=== PATIENT | female | born 1945 | race Caucasian/White ===

== ENCOUNTER 2016-05-28 08:50 | Outpatient (CLI) | payer MEDICARE, OTHER | END 2016-05-28 08:51 | disposition home or self-care (01) | DX: M25.50 Pain in unspecified joint (principal) ==

== ENCOUNTER 2016-07-20 17:13 | Outpatient (CLI) | payer MEDICARE, OTHER | END 2016-07-20 17:14 | disposition home or self-care (01) | DX: I10 Essential (primary) hypertension (principal); E78.5 Hyperlipidemia, unspecified ==

== ENCOUNTER 2016-08-31 08:03 | Day surgery (SDC) | payer MEDICARE, OTHER ==
[2016-08-31] MEDS ORDERED: LACTATED RINGERS 1,000 ML IV ONE (08:26)
[2016-08-31] MEDS ORDERED: LIDO GARGLE 30 ML BOTTLE PO ONE (09:45)
[2016-08-31] MEDS ORDERED: BENZOCAINE/TETRACAINE/BUTAMBEN SPRAY 56 GM TOP ONE (09:45)
[2016-08-31] MEDS ORDERED: MIDAZOLAM 2 MG/2 ML VIAL IVP ONE (10:05)
[2016-08-31] MEDS ORDERED: fentaNYL 100 MCG/2 ML VIAL IVP ONE (10:05)
[2016-08-31 10:26] VITALS: BP 150/72
== END 2016-08-31 08:04 | disposition home or self-care (01) ==
LOC: SDS 08:03
PROVIDERS: ATTEND Surgery
PROC: 0DB68ZX Excision of Stomach, Via Natural or Artificial Opening Endoscopic, Diagnostic (ICD-10-PCS; 2016-08-31)
PROC: 0DB58ZX Excision of Esophagus, Via Natural or Artificial Opening Endoscopic, Diagnostic (ICD-10-PCS; principal; 2016-08-31 09:15)
DX: K21.9 Gastro-esophageal reflux disease without esophagitis (principal); K43.2 Incisional hernia without obstruction or gangrene; K20.9 Esophagitis, unspecified; K29.70 Gastritis, unspecified, without bleeding; K44.9 Diaphragmatic hernia without obstruction or gangrene; K31.89 Other diseases of stomach and duodenum
CPT/HCPCS: 43239; 87081; A9270; J7120; 88305

== ENCOUNTER 2016-11-02 09:39 | Outpatient (CLI) | payer MEDICARE, OTHER ==
--- NOTE | 2016-11-03 18:10 | Mammography Report ---
DIGITAL BILATERAL SCREENING MAMMOGRAM: 11/02/2016 HISTORY: A 70-year-old asymptomatic female. Bilateral breast implants. COMPARISON: 08/2015, 08/2014, 08/2013, 06/2012, 11/2010, 11/2009, 08/2008. TECHNIQUE: Routine CC and MLO projections were obtained of the breasts. FINDINGS: Scattered fibroglandular tissue is present within the breasts. There are no dominant cesar s, suspicious microcalcifications, or secondary signs of malignancy. In comparison to the previous st udies, there are no significant changes. Stable prepectoral silicone implants. The pattern of glandular asymmetry is stable given positional differences. Benign calcifications again noted. ASSESSMENT: NO MAMMOGRAPHIC EVIDENCE OF MALIGNANCY. NO SIGNIFICANT INTERVAL CHANGES. RECOMMENDATION: Screening mammography is recommended annually. BI-RADS category 2 - benign. STANDARD QUALIFYING STATEMENTS 1. This examination was reviewed with the aid of Computed-Aided Detection (CAD). 2. A negative or benign imaging report should not delay biopsy if clinically suspicious findings are present. Consider surgical consultation if warranted. More than 5% of cancers are not identified by i maging. 3. Dense breasts may obscure an underlying neoplasm. JOB #: [id number] EXT JOB #:[id number]
== END 2016-11-02 09:40 | disposition home or self-care (01) ==
LOC: DI 09:39
PROVIDERS: ATTEND Family Medicine
DX: Z12.31 Encounter for screening mammogram for malignant neoplasm of breast (principal); Z98.82 Breast implant status
CPT/HCPCS: 77067

== ENCOUNTER 2017-11-18 10:35 | Outpatient (CLI) | payer MEDICARE, OTHER ==
[2017-11-18 18:47] LABS: BASOPHILS # (AUTO) 0.1 10^3/uL (0.0-0.1); EOSINOPHILS # (AUTO) 0.3 10^3/uL (0.0-0.7); EOSINOPHILS % (AUTO) 4.4 %; HGB - HEMOGLOBIN 15.9 g/dL (12.0-16.0); LYMPHOCYTES # (AUTO) 2.1 10^3/uL (1.5-3.5); LYMPHOCYTES % (AUTO) 28.7 %; MEAN CORPUSCULAR HEMOGLOBIN 31.6 pg (27.0-31.0); MEAN CORPUSCULAR HGB CONC 32.5 g/dL (32.0-36.0); MEAN CORPUSCULAR VOLUME 97.1 fL (81.0-99.0); MEAN PLATELET VOLUME 8.9 fL (7.9-10.8); MONOCYTES # (AUTO) 0.5 10^3/uL (0.0-1.0); MONOCYTES % (AUTO) 6.3 %; NEUTROPHILS # (AUTO) 4.4 10^3/uL (1.5-6.6); NEUTROPHILS % (AUTO) 59.6 %; PLT - PLATELET COUNT 243 10^3/uL (130-450); RED BLOOD COUNT 5.05 10^6/uL (4.20-5.40); RED CELL DISTRIBUTION WIDTH 14.3 % (12.0-15.0); WHITE BLOOD COUNT 7.3 x10^3/uL (4.8-10.8)
[2017-11-18 19:18] LABS: ALBUMIN 4.4 g/dL (3.2-5.5); ALBUMIN/GLOBULIN RATIO 1.3 (1.0-2.2); ALKALINE PHOSPHATASE 97 IU/L (42-121); ALT ALANINE AMINOTRANSFERASE 41 IU/L (10-60); AST ASPARTATE AMINOTRANSFERASE 45 IU/L (10-42); BILIRUBIN,TOTAL 0.9 mg/dL (0.2-1.0); BUN - BLOOD UREA NITROGEN 12 mg/dL (6-20); CALCIUM 9.4 mg/dL (8.5-10.3); CARBON DIOXIDE - CO2 26 mmol/L (21-32); CHLORIDE 101 mmol/L (101-111); CHOL/HDL RATIO 3.4 (<4.4); CHOLESTEROL 219 mg/dL; CREATININE 1.2 mg/dL (0.4-1.0); GFR - MDRD 44 (>89); GLUCOSE 103 mg/dL (70-100); HDL CHOLESTEROL 65 mg/dL; LDL CHOLESTEROL,CALCULATED 113 mg/dL; LDL/HDL RATIO 1.7 (<4.4); SODIUM 139 mmol/L (135-145); TOTAL PROTEIN 7.7 g/dL (6.7-8.2); VLDL CHOLESTEROL 41 mg/dL
[2017-11-18 19:42] LABS: HB2 TOTAL 17.2 g/dL; HEMOGLOBIN A1C 0.73 g/dL
== END 2017-11-18 10:36 | disposition home or self-care (01) ==
LOC: LAB.WCP 10:35
PROVIDERS: ATTEND Family Medicine
DX: N18.3 Chronic kidney disease, stage 3 (moderate) (principal); R63.1 Polydipsia; E78.5 Hyperlipidemia, unspecified; G62.9 Polyneuropathy, unspecified
CPT/HCPCS: 36415; 80053; 80061; 83036; 83721; 84443; 85025

== ENCOUNTER 2017-11-25 13:13 | Emergency (ER) | payer MEDICARE, OTHER ==
[2017-11-25] MEDS ORDERED: MECLIZINE 12.5 MG TABLET PO STA (13:26)
--- NOTE | 2017-11-25 13:29 | ED Physician Documentation ---
PD HPI FOCAL NEURO - Stated complaint Stated Complaint: DIZZY - Chief complaint Chief Complaint: Heent - History obtained from History obtained from: Patient - History of Present Illness Timing - onset: Today (This is a 71-year-old woman with history of hypertension who was at the chiropractor's office today. She was undergoing an adjustment to 1030 when she started to feel like the room was spinning. She has had constant spinning ever since with several episodes of vomiting. She took ondansetron which did help the nausea. She has no history of vertigo. She denies headache or neck pain. She has no specific ear complaints but she has had postnasal drip recently. She was told by the chiropractor to tell me that she has been having ear problems because of the postnasal drip and because of something the chiropractor did however the patient denies any ear pain, tinnitus , fullness, or hearing loss.) Review of Systems Constitutional: denies: Fever, Chills, Fatigue Ears: denies: Loss of hearing, Ear pain, Drainage/discharge, Tinnitus/ringing, Foreign body Nose: reports: Rhinorrhea / runny nose. denies: Congestion Throat: denies: Sore throat GI: reports: Nausea, Vomiting. 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, Breast implants - Present Medications Home Medications: Ambulatory Orders Medication Instructions Recorded Confirmed Amitriptyline [Elavil] 25 mg PO HS 12/20/12 08/31/16 Atenolol 50 mg PO DAILY 12/20/12 08/31/16 Cholecalciferol (Vitamin D3) 2,000 unit PO DAILY 12/20/12 08/31/16 [Vitamin D-3] Cinnamon Bark [Cinnamon] 1,000 mg PO DAILY 12/20/12 08/31/16 Fexofenadine HCl [Zelda] 180 mg PO QDAC PRN 12/20/12 08/31/16 Multivitamin [Multi-Vitamin Daily] 1 each PO DAILY 12/20/12 08/31/16 Telmisartan [Micardis] 40 mg PO DAILY 12/20/12 08/31/16 Turmeric Root Extract [Turmeric] 1,000 mg PO DAILY 12/20/12 08/31/16 oxyCODONE/ACET 5/325 [Percocet 5 1 tab PO Q6HR PRN 04/08/15 08/31/16 mg/325 mg] traMADol [Ultram] 50 mg PO DAILY PRN 04/08/15 08/31/16 Meclizine [Antivert] 25 mg PO Q6H PRN #15 tablet 11/25/17 Pramipexole Di-HCl [Mirapex] 1 mg PO 11/25/17 - Allergies Allergies/Adverse Reactions: Allergies Allergy/AdvReac Type Severity Reaction Status Date / Time Calcium Channel Blocking Allergy Severe Hives Verified 11/25/17 13:26 Agent Dilt [Calcium Channel Blocking Agents-Spencer] codeine [Codeine] Allergy Severe Hives Verified 11/25/17 13:26 morphine Allergy Severe Nausea Verified 11/25/17 13:26 Penicillins Allergy Severe Rash Verified 11/25/17 13:26 nitrofurantoin AdvReac Intermediate Nausea Verified 11/25/17 13:26 [From Macrobid] nitrofurantoin AdvReac Intermediate Nausea Verified 11/25/17 13:26 macrocrystalline * [From Macrobid] - Social History Does the pt smoke?: No Smoking Status: Never smoker Does the pt drink ETOH?: Yes Does the pt have substance abuse?: No - Family History Family history: reports: Non contributory - Immunizations Immunizations are current?: Yes - POLST Patient has POLST: No PD ED PE NORMAL - Vitals Vital signs reviewed: Yes - General General: Alert and oriented X 3, No acute distress - HEENT HEENT: PERRL, EOMI - Neck Neck: Supple, no meningeal sign, No bony TTP - Cardiac Cardiac: RRR, No murmur - Respiratory Respiratory: No respiratory distress, Clear bilaterally - Abdomen Abdomen: Soft, Non tender - Neuro Neuro: Alert and oriented X 3 Eye Opening: Spontaneous Motor: Obeys Commands Verbal: Oriented GCS Score: 15 - Psych Psych: Normal mood, Normal affect NIHSS - Time Time: 13:22 - Level of Consciousness Level of consciousness: (0) Alert, Keenly responsive LOC Questions: (0) Answers both Q's correct LOC Commands: (0) Performs both correctly - Gaze Best Gaze: (0) Normal - Visual Visual: (0) No loss - Facial Palsy Facial Palsy: (0) Normal, symmetrical movement - Motor Arms (both separate) Motor Arm (right): (0) No drift Motor Arm (left): (0) No drift - Motor Legs (both separate) Motor Leg (right): (0) No drift Motor Leg (left): (0) No drift - Limb Ataxia Limb Ataxia: (0) Absent - Sensory Sensory: (0) Normal - Best Language Best Language: (0) No aphasia - Dysarthria Dysarthria: (0) Normal - Extinction and Inattention (formally neg Extinction and inattention: (0) No abnormality - Total Score/Results Total Score/Result: 0 Results - Vitals Vitals: Vital Signs - 24 hr 11/25/17 11/25/17 13:19 14:47 Temperature 35.7 C L Heart Rate 61 67 Respiratory 16 15 Rate Blood Pressure 145/65 H 119/57 L O2 Saturation 96 96 Oxygen O2 Source Room air - EKG (time done) 1344 Rate: Rate (enter#) (60) Rhythm: NSR [place]: Normal Intervals: Prolonged [place] (borderline 217msec) QRS: Normal Ischemia: Normal ST segments Computer interpretation: Agree with computer - Labs Labs: Laboratory Tests 11/25/17 11/25/17 13:39 13:39 WBC 7.0 RBC 5.00 Hgb 16.0 Hct 47.1 H MCV 94.3 MCH 32.0 H MCHC 33.9 RDW 13.9 Plt Count 218 MPV 8.7 Neut # (Auto) 5.2 Lymph # (Auto) 1.1 L [place] # (Auto) 0.3 Eos # (Auto) 0.2 Baso # (Auto) 0.2 H Absolute Nucleated RBC 0.00 Nucleated RBC % 0.0 Sodium 136 Potassium 3.8 Chloride 98 L Carbon Dioxide 28 Anion Gap 10.0 BUN 18 Creatinine 1.6 H Estimated GFR (MDRD) 32 L Glucose 146 H Calcium 9.3 Total Bilirubin 0.8 AST 45 H ALT 46 Alkaline Phosphatase 105 Total Protein 7.7 Albumin 4.5 Globulin 3.2 Albumin/Globulin Ratio 1.4 Lipase 24 - Rads (name of study) CTA head and neck Radiology: EMP read contemporaneously (No acute findings, see official report.) PD MEDICAL DECISION MAKING - ED course ED course: -year-old woman presents with acute vertigo in the setting of chiropractic manipulation which is concerning for vertebral dissection, as such CTA of the head and neck were done without relevant findings. After single dose of meclizine her vertigo was completely gone. Her neurologic examination remained normal and she ambulated in the hallway without ataxia or difficulty. - Sepsis Event Vital Signs: Vital Signs - 24 hr 11/25/17 11/25/17 13:19 14:47 Temperature 35.7 C L Heart Rate 61 67 Respiratory 16 15 Rate Blood Pressure 145/65 H 119/57 L O2 Saturation 96 96 Oxygen O2 Source Room air Departure - Departure Disposition: 01 Home, Self Care Clinical Impression: Vertigo Condition: Good Record reviewed to determine appropriate education?: Yes Instructions: ED Vertigo Unspecified Prescriptions: Meclizine [Antivert] 25 mg PO Q6H PRN #15 tablet PRN Reason: Vertigo Comments: Call your doctor to arrange a follow-up appointment, make the next available appointment. In the interim, return anytime if worse or if new symptoms develop.
[2017-11-25] MEDS ORDERED: IOPAMIDOL-300 100 ML VIAL ONE (13:50)
[2017-11-25 13:55] LABS: BASOPHILS # (AUTO) 0.2 10^3/uL (0.0-0.1); BASOPHILS % (AUTO) 2.4 %; EOSINOPHILS # (AUTO) 0.2 10^3/uL (0.0-0.7); EOSINOPHILS % (AUTO) 2.3 %; LYMPHOCYTES # (AUTO) 1.1 10^3/uL (1.5-3.5); LYMPHOCYTES % (AUTO) 16.2 %; MEAN CORPUSCULAR HGB CONC 33.9 g/dL (32.0-36.0); MEAN CORPUSCULAR VOLUME 94.3 fL (81.0-99.0); MEAN PLATELET VOLUME 8.7 fL (7.9-10.8); MONOCYTES # (AUTO) 0.3 10^3/uL (0.0-1.0); MONOCYTES % (AUTO) 3.8 %; NEUTROPHILS # (AUTO) 5.2 10^3/uL (1.5-6.6); NEUTROPHILS % (AUTO) 75.3 %; PLT - PLATELET COUNT 218 10^3/uL (130-450); RED CELL DISTRIBUTION WIDTH 13.9 % (12.0-15.0)
[2017-11-25 14:10] LABS: ALBUMIN 4.5 g/dL (3.2-5.5); ALBUMIN/GLOBULIN RATIO 1.4 (1.0-2.2); BILIRUBIN,TOTAL 0.8 mg/dL (0.2-1.0); CALCIUM 9.3 mg/dL (8.5-10.3); CREATININE 1.6 mg/dL (0.4-1.0); TOTAL PROTEIN 7.7 g/dL (6.7-8.2)
[2017-11-25] MEDS ORDERED: SODIUM CHLORIDE 0.9% 1,000 ML IV ONE (14:23)
--- NOTE | 2017-11-25 15:25 | CT Report ---
Reason: Vertigo starting during chiropractic Procedure Date: 11/25/2017 Accession Number: [id number] / [id number] Procedure: CT - Head Angio CPT Code: FULL RESULT: EXAM: CT ANGIOGRAM HEAD. CT SCAN OF THE HEAD WITHOUT AND WITH CONTRAST. EXAM DATE: 11/25/2017 02:43 PM CLINICAL HISTORY: Vertigo starting during chiropractic. COMPARISON: None. CT angiogram of the neck 11/25/2017. TECHNIQUE: - CT Scan Head: Using a multidetector scanner, axial images were acquired from the foramen magnum to the skull vertex prior to and following contrast administration. - CT Angiogram: Using a multidetector scanner, high-resolution axial images were acquired from the skull base through vertex following rapid infusion of intravenous contrast. Reformats: Multiplanar MIP reformats were reconstructed. Nascet criteria used for stenosis measurement. IV Contrast: ISOVUE 300 80 mL. In accordance with CT protocol optimization, one or more of the following dose reduction techniques were utilized for this exam: automated exposure control, adjustment of mA and/or KV based on patient size, or use of iterative reconstructive technique. FINDINGS: NON-CONTRAST HEAD: Parenchyma: No intraparenchymal hemorrhage. No evidence of mass, midline shift, or CT findings of infarction. Horner-white differentiation is distinct. Extraaxial Spaces: Normal for age. No subdural or epidural collections identified. Ventricles: Normal in size and position. Sinuses and orbits: Imaged paranasal sinuses, orbits, and mastoids show no significant abnormality. Bones: No evidence of fracture or calvarial defect. Other: None. POST-CONTRAST HEAD: No abnormal enhancement. CT ANGIOGRAM HEAD: RIGHT: Internal Carotid artery: No evidence of dissection. No evidence of aneurysm along the intracranial ICA. Minimal scattered punctate atherosclerotic calcifications are seen. Anterior Cerebral Artery: Patent without significant stenosis, aneurysm, or vascular malformation. Middle Cerebral Artery: Patent without significant stenosis, aneurysm, or vascular malformation. Posterior Cerebral Artery: Patent without significant stenosis, aneurysm, or vascular malformation. Posterior Communicating Artery: Patent and dominant. Vertebral Artery: Patent without significant stenosis. No evidence of dissection. The right PICA is dominant arising from the distal V4 segment. LEFT: Internal Carotid artery: No evidence of dissection. No evidence of aneurysm along the intracranial ICA. Minimal scattered punctate atherosclerotic calcifications are seen. Anterior Cerebral Artery: Patent without significant stenosis, aneurysm, or vascular malformation. Middle Cerebral Artery: Patent without significant stenosis, aneurysm, or vascular malformation. Posterior Cerebral Artery: Patent without significant stenosis, aneurysm, or vascular malformation. Posterior Communicating Artery: Patent and dominant. Vertebral Artery: Patent without significant stenosis. No evidence of dissection. CENTRAL: Anterior Communicating Artery: Patent. No aneurysm. Basilar Artery: Diffusely small in caliber. 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 This is proximal to the dominant left AICA origin. No significant stenosis. No aneurysm. Bilateral superior cerebellar arteries are unremarkable. 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 DURAL VENOUS SINUSES AND MAJOR CENTRAL VEINS: Patent. Note there is hypoplasia of the right transverse sinus. The left transverse sinus and jugular bulb are dominant. IMPRESSION: CT Head: 1. No acute intracranial abnormality. Specifically, no evidence of acute infarct, hemorrhage, or mass lesion. No abnormal enhancement. CTA Head: 1. Unremarkable CTA of the head. No significant vascular stenosis, dissection, or aneurysm. 2. Small caliber vertebrobasilar system is noted. Prominent bilateral P-comm are seen with moderate hypoplasia of the P1 segments off the basilar tip. 3. Note is made of focal fenestration in the proximal basilar artery. This is proximal to the dominant left AICA origin. RADIA
--- NOTE | 2017-11-25 15:25 | CT Report ---
Reason: Vertigo starting during chiropractic Procedure Date: 11/25/2017 Accession Number: [id number] / [id number] Procedure: CT - Neck Angio CPT Code: FULL RESULT: EXAM: CT ANGIOGRAM NECK EXAM DATE: 11/25/2017 02:43 PM. CLINICAL HISTORY: Vertigo starting during chiropractic. COMPARISON: None. CT scan and CT angiogram of the head 11/25/2017. TECHNIQUE: Routine axial helical imaging was performed from the skull base through the aortic arch. Reconstructions: Routine multiplanar 3D MIP reconstructions. IV Contrast: ISOVUE 300 80 mL. Evaluation of arterial stenosis is based on a NASCET method of measurement. In accordance with CT protocol optimization, one or more of the following dose reduction techniques were utilized for this exam: automated exposure control, adjustment of mA and/or KV based on patient size, or use of iterative reconstructive technique. FINDINGS: Mild tortuosity of the aortic arch and great vessels off the arch is seen. Normal three-vessel branching is seen. The great vessels are patent and unremarkable. Right Carotid: The common carotid, internal carotid, and external carotid arteries are widely patent. No dissection, significant atherosclerotic plaque, or calcification identified. Left Carotid: The common carotid, internal carotid, and external carotid arteries are widely patent. No dissection, significant atherosclerotic plaque, or calcification identified. There is subtle mild intimal irregularity noted involving the mid cervical ICA. (Axial series 2, image 332; coronal series 5, image 80). This may be secondary to mild spasm/fibromuscular dysplasia. Appearance is not typical for dissection. Vertebrals: The vertebrobasilar system shows no stenoses. Intracranial Circulation: (See report of CT angiogram of the head performed same time.) Other: The bones, soft tissues, and lung apices are within normal limits. Mild scattered cervical spondylosis is appreciated. IMPRESSION: 1. Unremarkable neck CT angiogram. No hemodynamically significant stenoses. 2. Note is made of a small focus of intimal irregularity involving the mid cervical left ICA. This is likely secondary to spasm or fibromuscular dysplasia rather than subtle dissection. RADIA
[2017-11-25 15:36] VITALS: BP 148/79
[2017-11-25] MEDS ORDERED: IOPAMIDOL-300 100 ML VIAL IVP ONE (19:10)
== END 2017-11-25 15:44 | disposition home or self-care (01) ==
LOC: ED 13:13
DX: R42 Dizziness and giddiness (principal); I10 Essential (primary) hypertension
CPT/HCPCS: 36415; 70496; 70498; 80053; 83690; 85025; 93005; 96374; 99283; A9270; Q9967

== ENCOUNTER 2018-03-23 11:09 | Emergency (ER) | payer MEDICARE, OTHER ==
--- NOTE | 2018-03-23 11:56 | XRAY Report ---
Reason: cough Procedure Date: 03/23/2018 Accession Number: [id number] / [id number] Procedure: XR - Chest 2 View X-Ray CPT Code: 08690 FULL RESULT: EXAM: CHEST RADIOGRAPHY EXAM DATE: 03/23/2018 11:35 AM. CLINICAL HISTORY: Cough. COMPARISON: None. TECHNIQUE: 2 views. FINDINGS: Lungs/Pleura: No focal opacities evident. No pleural effusion. No pneumothorax. Normal volumes. Mediastinum: Heart and mediastinal contours are unremarkable. Other: Wrist implants are identified. IMPRESSION: No acute cardiopulmonary abnormality is seen. RADIA
[2018-03-23] MEDS ORDERED: AZITHROMYCIN 250 MG TABLET PO STA (12:10)
[2018-03-23] MEDS ORDERED: ALBUTEROL NEB 2.5 MG/3 ML INH STA (12:10)
[2018-03-23] MEDS ORDERED: BENZONATATE 100 MG CAPSULE PO STA (12:10)
--- NOTE | 2018-03-23 12:18 | ED Physician Documentation ---
History of Present Illness - Stated complaint Stated Complaint: CONGESTION, BAD COUGH - Chief complaint Chief Complaint: Resp - Additonal information Additional information: hx from pt 72 female to ED with about 7-10 days of worsening cough no fever some diarrhea daughter sick with similar no foreign travel no leg swelling feels like prior walking pna Review of Systems Constitutional: reports: Myalgias (has arthritis), Fatigue. denies: Fever, Chills Cardiac: denies: Chest pain / pressure Respiratory: reports: Cough. denies: Dyspnea GI: reports: Diarrhea. 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, Breast implants - Present Medications Home Medications: Ambulatory Orders Medication Instructions Recorded Confirmed Amitriptyline [Elavil] 25 mg PO HS 12/20/12 08/31/16 Atenolol 50 mg PO DAILY 12/20/12 08/31/16 Cholecalciferol (Vitamin D3) 2,000 unit PO DAILY 12/20/12 08/31/16 [Vitamin D-3] Cinnamon Bark [Cinnamon] 1,000 mg PO DAILY 12/20/12 08/31/16 Fexofenadine HCl [Zelda] 180 mg PO QDAC PRN 12/20/12 08/31/16 Multivitamin [Multi-Vitamin Daily] 1 each PO DAILY 12/20/12 08/31/16 Telmisartan [Micardis] 40 mg PO DAILY 12/20/12 08/31/16 Turmeric Root Extract [Turmeric] 1,000 mg PO DAILY 12/20/12 08/31/16 oxyCODONE/ACET 5/325 [Percocet 5 1 tab PO Q6HR PRN 04/08/15 08/31/16 mg/325 mg] traMADol [Ultram] 50 mg PO DAILY PRN 04/08/15 08/31/16 Meclizine [Antivert] 25 mg PO Q6H PRN #15 tablet 11/25/17 Pramipexole Di-HCl [Mirapex] 1 mg PO 11/25/17 Albuterol Sulfate [Proair Hfa 2 puffs INH Q4H PRN #1 inhaler 03/23/18 Inhaler] Azithromycin [Zithromax] 250 mg PO DAILY #4 tablet 03/23/18 Benzonatate [Tessalon Perle] 100 mg PO TID PRN #20 capsule 03/23/18 - Allergies Allergies/Adverse Reactions: Allergies Allergy/AdvReac Type Severity Reaction Status Date / Time Calcium Channel Blocking Allergy Severe Hives Verified 03/23/18 11:16 Agent Dilt [Calcium Channel Blocking Agents-Spencer] codeine [Codeine] Allergy Severe Hives Verified 03/23/18 11:16 morphine Allergy Severe Nausea Verified 03/23/18 11:16 Penicillins Allergy Severe Rash Verified 03/23/18 11:16 nitrofurantoin AdvReac Intermediate Nausea Verified 03/23/18 11:16 [From Macrobid] nitrofurantoin AdvReac Intermediate Nausea Verified 03/23/18 11:16 macrocrystalline * [From Macrobid] - Social History Does the pt smoke?: No Smoking Status: Never smoker Does the pt drink ETOH?: Yes Does the pt have substance abuse?: No - Immunizations Immunizations are current?: Yes - POLST Patient has POLST: No PD ED PE NORMAL - Vitals Vital signs reviewed: Yes - General General: Alert and oriented X 3 - Neck Neck: Supple, no meningeal sign - Cardiac Cardiac: RRR - Respiratory Respiratory: Other (focal ronchi RLL, occ scattered insp wheezes) - Abdomen Abdomen: Non tender - Extremities Extremities: No edema, No calf tenderness / cord - Neuro Neuro: Alert and oriented X 3 Results - Vitals Vitals: Vital Signs - 24 hr 03/23/18 03/23/18 11:12 12:00 Temperature 36.1 C L 36.3 C L Heart Rate 75 87 Respiratory 20 18 Rate Blood Pressure 154/87 H 145/92 H O2 Saturation 98 95 Oxygen O2 Source Room air - Rads (name of study) CXR Radiology: See rad report (NACPD) PD MEDICAL DECISION MAKING - ED course ED course: clinically has pna - will tx no fever or severe myalgia to suggest influenza and ill for a week + already so not a candidate for tamiflu so did not test Departure - Departure Disposition: 01 Home, Self Care Clinical Impression: Pneumonia Qualifiers: Pneumonia type: due to unspecified organism Laterality: right Lung location: lower lobe of lung Qualified Code(s): J18.1 - Lobar pneumonia, unspecified organism Condition: Good Instructions: ED Pneumonia Adult, ED Inhaler Use Follow-Up: Coral Hua DO [Primary Care Provider] - Prescriptions: Albuterol Sulfate [Proair Hfa Inhaler] 2 puffs INH Q4H PRN #1 inhaler PRN Reason: Shortness Of Air/Wheezing Azithromycin [Zithromax] 250 mg PO DAILY #4 tablet Benzonatate [Tessalon Perle] 100 mg PO TID PRN #20 capsule PRN Reason: Cough Forms: Activity restrictions
[2018-03-23 13:11] VITALS: BP 143/80
== END 2018-03-23 13:14 | disposition home or self-care (01) ==
LOC: ED 11:09
DX: J18.1 Lobar pneumonia, unspecified organism (principal); I10 Essential (primary) hypertension; E78.00 Pure hypercholesterolemia, unspecified
CPT/HCPCS: 71046; 94640; 99283; A9270

== ENCOUNTER 2018-03-23 15:31 | Outpatient (CLI) | payer MEDICARE, OTHER ==
--- NOTE | 2018-03-24 08:27 | Mammography Report ---
Reason: SCREENING MAMMO Procedure Date: 03/23/2018 Accession Number: [id number] / [id number] Procedure: MGN - Screening Mammo Dig w/Implants CPT Code: FULL RESULT: EXAM: Screening Mammo Dig w/Implants DATE: 03/23/2018 4:01 PM CLINICAL HISTORY: Screening encounter. History of silicone breast implants placed in 1980. Reported history of 20 years of hormone therapy. TECHNIQUE: Bilateral CC and MLO views were obtained in implant displaced and standard fashion. COMPARISON: 11/02/2016 through 09/17/2008. FINDINGS: The breasts demonstrate scattered fibroglandular densities bilaterally. An isodense well-circumscribed left breast retroareolar nodule is stable dating back to 2013, typically benign. Bilateral retromammary/prepectoral breast implants are again seen, typically benign. No suspicious masses, clustered microcalcifications, or regions of architectural distortion are identified. IMPRESSION: Benign findings RECOMMENDATION: Routine annual screening unless otherwise clinically indicated. BIRADS CATEGORY 2: Benign findings STANDARD QUALIFYING STATEMENTS: 1. This examination was reviewed with the aid of Computer-Aided Detection (CAD). 2. A negative or benign imaging report should not preclude biopsy if clinically suspicious findings are present. 3. Dense breasts may obscure an underlying neoplasm. 4. This examination was reviewed without the aid of 3D breast imaging (tomosynthesis).
== END 2018-03-23 15:32 | disposition home or self-care (01) ==
LOC: DI.N 15:31
DX: Z12.31 Encounter for screening mammogram for malignant neoplasm of breast (principal); Z98.82 Breast implant status
CPT/HCPCS: 77067

== ENCOUNTER 2018-08-09 13:59 | Outpatient (CLI) | payer MEDICARE, OTHER ==
--- NOTE | 2018-08-09 15:23 | XRAY Report ---
Reason: Chronic bilateral knee pain Procedure Date: 08/09/2018 Accession Number: [id number] / [id number] Procedure: XR - Knee Standing BILAT CPT Code: FULL RESULT: EXAMS: 1. Right Knee Radiography 2. Left Knee Radiography EXAM DATE:08/09/2018 02:29 PM. CLINICAL HISTORY:Chronic bilateral knee pain. 6 months duration. COMPARISON: KNEE 3 VIEW LT 08/09/2018 2:15 PM. TECHNIQUE: 2 views each. FINDINGS: Right Knee: Bones: Normal. No fractures or bone lesions. Joints: Moderate joint space narrowing in the medial compartment and mild joint space narrowing in the lateral compartment. No significant effusion and no subluxation. Soft Tissues: Normal. No soft tissue swelling. Left Knee: Bones: Normal. No fractures or bone lesions. Joints: Moderate joint space narrowing in the medial weightbearing compartment and mild joint space narrowing in the lateral weightbearing compartment. No subluxation or effusion. Soft Tissues: Normal. No soft tissue swelling. IMPRESSION: Mild degenerative changes. RADIA
== END 2018-08-09 14:00 | disposition home or self-care (01) ==
LOC: DI 13:59
PROVIDERS: ATTEND Family Medicine
DX: M17.0 Bilateral primary osteoarthritis of knee (principal)
CPT/HCPCS: 73565

== ENCOUNTER 2018-09-15 14:54 | Outpatient (CLI) | payer MEDICARE, OTHER ==
[2018-09-15] MEDS ORDERED: IOPAMIDOL-370 100 ML VIAL ONE (15:07)
[2018-09-15] MEDS ORDERED: IOVERSOL 320 50 ML VIAL ONE (15:07)
[2018-09-15] MEDS ORDERED: IOVERSOL 320 100 ML VIAL IVP ONE ×2 (15:07→16:59)
[2018-09-15] MEDS ORDERED: IOVERSOL 320 50 ML VIAL PO ONE (16:59)
--- NOTE | 2018-09-16 12:05 | CT Report ---
Reason: ABDOMINAL PAIN Procedure Date: 09/15/2018 Accession Number: [id number] / [id number] Procedure: CT - Abdomen/Pelvis W CPT Code: FULL RESULT: EXAM: CT ABDOMEN AND PELVIS EXAM DATE: 09/15/2018 04:21 PM. CLINICAL HISTORY: Abdominal pain. COMPARISONS: None. TECHNIQUE: Routine helical CT imaging was performed through the abdomen and pelvis. IV contrast: 100 mL Optiray 320. Enteric contrast: Yes. Reconstructions: Coronal and sagittal. In accordance with CT protocol optimization, one or more of the following dose reduction techniques were utilized for this exam: automated exposure control, adjustment of mA and/or KV based on patient size, or use of iterative reconstructive technique. FINDINGS: Lung Bases: Unremarkable. Liver: Normal. No masses. Gallbladder/Bile Ducts: Unremarkable. Spleen: Normal. Pancreas: Normal. Adrenal Glands: Normal. Kidneys: Normal. No masses or hydronephrosis. Peritoneal Cavity/Bowel: There is a small sliding-type hiatal hernia. There is a fat-containing periumbilical hernia, 2.6 cm wide diastases. There is a mild amount of colonic diverticulosis predominantly in the sigmoid colon. The patient is status post appendectomy. There is no bowel obstruction, free fluid or free air. There is no lymphadenopathy by size criteria. Pelvic Organs: No pelvic mass is seen. The bladder and visualized pelvic organs are within normal limits. Vasculature: No aneurysms or other significant abnormality. Bones: No aggressive osseous lesions are seen. Other: None. IMPRESSION: Small hiatal hernia. Periumbilical fat-containing hernia. Diverticulosis without diverticulitis seen, mild amount. RADIA
== END 2018-09-15 14:55 | disposition home or self-care (01) ==
LOC: DI 14:54
PROVIDERS: ATTEND Physician Assistant
DX: K44.9 Diaphragmatic hernia without obstruction or gangrene (principal); K42.9 Umbilical hernia without obstruction or gangrene; K57.30 Diverticulosis of large intestine without perforation or abscess without bleeding; R10.9 Unspecified abdominal pain
CPT/HCPCS: 74177; Q9967

== ENCOUNTER 2018-11-25 08:58 | Outpatient (CLI) | payer MEDICARE, OTHER | END 2018-11-25 08:59 | disposition home or self-care (01) | LOC: NS 08:58 | PROVIDERS: ATTEND Family Medicine | DX: Z71.3 Dietary counseling and surveillance (principal); N18.3 Chronic kidney disease, stage 3 (moderate); R73.01 Impaired fasting glucose; E78.5 Hyperlipidemia, unspecified; I12.9 Hypertensive chronic kidney disease with stage 1 through stage 4 chronic kidney disease, or unspecified chronic kidney disease | CPT/HCPCS: 97802 ==

== ENCOUNTER 2018-12-09 10:55 | Outpatient (CLI) | payer MEDICARE, OTHER | END 2018-12-09 10:56 | disposition home or self-care (01) | LOC: NS 10:55 | PROVIDERS: ATTEND Family Medicine | DX: Z71.3 Dietary counseling and surveillance (principal); R73.01 Impaired fasting glucose; N18.3 Chronic kidney disease, stage 3 (moderate); E78.5 Hyperlipidemia, unspecified; I12.9 Hypertensive chronic kidney disease with stage 1 through stage 4 chronic kidney disease, or unspecified chronic kidney disease; M18.12 Unilateral primary osteoarthritis of first carpometacarpal joint, left hand | CPT/HCPCS: 96365; 96366; 96367; 97803; 99212 ==

== ENCOUNTER 2018-12-09 15:12 | Outpatient (CLI) | payer MEDICARE, OTHER ==
--- NOTE | 2018-12-09 19:13 | XRAY Report ---
Reason: LEFT WRIST PAIN Procedure Date: 12/09/2018 Accession Number: [id number] / [id number] Procedure: WCP - Wrist 3 View LT CPT Code: FULL RESULT: EXAM: LEFT WRIST RADIOGRAPHY EXAM DATE: 12/09/2018 03:25 PM HISTORY: LEFT WRIST PAIN COMPARISON: None TECHNIQUE: PA, lateral and oblique views . FINDINGS: No fracture. There is mild first CMC joint osteoarthritis. Articulations are otherwise unremarkable. Normal carpal bone alignment. Normal soft tissues. IMPRESSION: Mild degenerative arthritis at the first CMC joint. Otherwise unremarkable. RADIA
== END 2018-12-09 23:59 | disposition home or self-care (01) ==
LOC: DI.WCP 15:12
PROVIDERS: ATTEND Nurse Practitioner Family
DX: M18.12 Unilateral primary osteoarthritis of first carpometacarpal joint, left hand (principal)

== ENCOUNTER 2019-01-06 11:09 | Outpatient (CLI) | payer MEDICARE, OTHER | END 2019-01-06 11:10 | disposition home or self-care (01) | LOC: NS 11:09 | PROVIDERS: ATTEND Family Medicine | DX: Z71.3 Dietary counseling and surveillance (principal); N18.3 Chronic kidney disease, stage 3 (moderate); R73.01 Impaired fasting glucose; E78.5 Hyperlipidemia, unspecified; R73.9 Hyperglycemia, unspecified; I12.9 Hypertensive chronic kidney disease with stage 1 through stage 4 chronic kidney disease, or unspecified chronic kidney disease | CPT/HCPCS: 97803 ==

== ENCOUNTER 2019-02-28 12:31 | Emergency (ER) | payer MEDICARE, OTHER ==
[2019-02-28 12:39] VITALS: BP 151/78
--- NOTE | 2019-02-28 13:14 | XRAY Report ---
Reason: bruising, dropped jar on toe Procedure Date: 02/28/2019 Accession Number: [id number] / [id number] Procedure: XR - Toe(s) RT CPT Code: Final Report FULL RESULT: EXAM: RIGHT SECOND TOE RADIOGRAPHY EXAM DATE: 02/28/2019 12:44 PM. CLINICAL HISTORY: Bruising, dropped jar on toe. COMPARISON: None. TECHNIQUE: 3 views. FINDINGS: Bones: Osteopenia. Nondisplaced fracture of the terminal tuft best seen on lateral view. Otherwise unremarkable. Joints: Prominent degenerative changes in the DIP joint. Soft Tissues: Soft tissue swelling. IMPRESSION: Nondisplaced second tuft fracture. RADIA
--- NOTE | 2019-02-28 13:53 | ED Physician Documentation ---
PD HPI LOWER EXT INJURY - Stated complaint Stated Complaint: R TOE INJ - Chief complaint Chief Complaint: Ext Problem - History obtained from History obtained from: Patient - History of Present Illness PD HPI LOW EXT INJURY LOCATION: Right, Toe Type of injury: Blunt / blow (dropped jar on toe yesterday, with bruising and swelling. Hurts more today.) Where injury occurred: Home Timing - onset: Yesterday Timing - details: Abrupt onset, Still present Worsened by: Moving, Palpating Associated symptoms: Swelling, Discolored (bruised color) Similar symptoms before: Has not had sx before Review of Systems Skin: denies: Abrasion (s), Laceration (s) Neurologic: denies: Focal weakness, Numbness PD PAST MEDICAL HISTORY - Past Medical History Cardiovascular: Hypertension, High cholesterol Respiratory: Shortness of breath, Sleep apnea Neuro: None Endocrine/Autoimmune: None, Other GI: GERD, Cholelithiasis : Renal insuffiency, Kidney stones HEENT: Other Psych: Claustrophobia Musculoskeletal: Osteoarthritis, Chronic back pain, Other Derm: None - Past Surgical History Past Surgical History: Yes General: Cholecystectomy, 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 /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 NURSE: Hysterectomy, Breast implants - Present Medications Home Medications: Ambulatory Orders Medication Instructions Recorded Confirmed Amitriptyline [Elavil] 25 mg PO HS 12/20/12 08/31/16 Atenolol 50 mg PO DAILY 12/20/12 08/31/16 Cholecalciferol (Vitamin D3) 2,000 unit PO DAILY 12/20/12 08/31/16 [Vitamin D-3] Cinnamon Bark [Cinnamon] 1,000 mg PO DAILY 12/20/12 08/31/16 Fexofenadine HCl [Zelda] 180 mg PO QDAC PRN 12/20/12 08/31/16 Multivitamin [Multi-Vitamin Daily] 1 each PO DAILY 12/20/12 08/31/16 Telmisartan [Micardis] 40 mg PO DAILY 12/20/12 08/31/16 Turmeric Root Extract [Turmeric] 1,000 mg PO DAILY 12/20/12 08/31/16 oxyCODONE/ACET 5/325 [Percocet 5 1 tab PO Q6HR PRN 04/08/15 08/31/16 mg/325 mg] traMADol [Ultram] 50 mg PO DAILY PRN 04/08/15 08/31/16 Meclizine [Antivert] 25 mg PO Q6H PRN #15 tablet 11/25/17 Pramipexole Di-HCl [Mirapex] 1 mg PO 11/25/17 Albuterol Sulfate [Proair Hfa 2 puffs INH Q4H PRN #1 inhaler 03/23/18 Inhaler] Azithromycin [Zithromax] 250 mg PO DAILY #4 tablet 03/23/18 Benzonatate [Tessalon Perle] 100 mg PO TID PRN #20 capsule 03/23/18 Hydrocodone/Acetaminophen 1 each PO Q6H PRN #14 tablet 02/28/19 [Hydrocodon-Acetaminophen 5-325] - Allergies Allergies/Adverse Reactions: Allergies Allergy/AdvReac Type Severity Reaction Status Date / Time Calcium Channel Blocking Allergy Severe Hives Verified 03/23/18 11:16 Agent Dilt [Calcium Channel Blocking Agents-Spencer] codeine [Codeine] Allergy Severe Hives Verified 03/23/18 11:16 morphine Allergy Severe Nausea Verified 03/23/18 11:16 Penicillins Allergy Severe Rash Verified 03/23/18 11:16 nitrofurantoin AdvReac Intermediate Nausea Verified 03/23/18 11:16 [From Macrobid] nitrofurantoin AdvReac Intermediate Nausea Verified 03/23/18 11:16 macrocrystalline * [From Macrobid] - Social History Does the pt smoke?: No Smoking Status: Never smoker Does the pt drink ETOH?: Yes Does the pt have substance abuse?: No - Immunizations Immunizations are current?: Yes - POLST Patient has POLST: No PD ED PE NORMAL - Vitals Vital signs reviewed: Yes - General General: Alert and oriented X 3, No acute distress, Well developed/nourished - Extremities Extremities: Other (right second toe with swelling, bruising, tender at end of toe. ) - Neuro Neuro: No motor deficit, No sensory deficit Results - Vitals Vitals: Vital Signs - 24 hr 02/28/19 12:37 Temperature 36.6 C Heart Rate 64 Respiratory 18 Rate Blood Pressure 151/78 H O2 Saturation 95 Oxygen O2 Source Room air - Rads (name of study) right toes Radiology: Prelim report reviewed (distal phalanx transverse tuft fracture, nondisplaced. ), EMP read contemporaneously, See rad report PD MEDICAL DECISION MAKING - ED course Complexity details: reviewed results, considered differential, d/w patient Departure - Departure Disposition: 01 Home, Self Care Clinical Impression: Toe fracture, right Qualifiers: Encounter type: initial encounter Toe: lesser toe Fracture type: closed Phalanx: distal Fracture alignment: nondisplaced Qualified Code(s): S92.534A - Nondisplaced fracture of distal phalanx of right lesser toe(s), initial encounter for closed fracture Crush injury, toe Qualifiers: Encounter type: initial encounter Laterality: right Qualified Code(s): S97.101A - Crushing injury of unspecified right toe(s), initial encounter Condition: Stable Record reviewed to determine appropriate education?: Yes Instructions: ED Fx Toe Closed Follow-Up: Coral Hua DO [Primary Care Provider] - Prescriptions: Hydrocodone/Acetaminophen [Hydrocodon-Acetaminophen 5-325] 1 each PO Q6H PRN #14 tablet PRN Reason: pain Comments: Firm soled shoe to reduce some of the movement on the toe with walking. Ice elevate and rest the toe often to reduce swelling. I think the swelling will go down with the ring off. You can use some anti-inflammatories such as naproxen or ibuprofen. Add pain medicine if needed. The toe fracture will hurt with movement and use for the first 1 to 1-1/2 weeks primarily but will take about a month to fully healed up. Progress activity as able. The bruising and swelling should improve in a shorter timeframe and that will help the pain a fair amount. Discharge Date/Time: 02/28/19 14:50
[2019-02-28] MEDS ORDERED: HYDROcod/ACETAM 5/325 MG TABLET PO STA (14:14)
== END 2019-02-28 14:50 | disposition home or self-care (01) ==
LOC: ED 12:31
DX: S92.534A Nondisplaced fracture of distal phalanx of right lesser toe(s), initial encounter for closed fracture (principal); S97.101A Crushing injury of unspecified right toe(s), initial encounter; W20.8XXA Other cause of strike by thrown, projected or falling object, initial encounter; Y92.009 Unspecified place in unspecified non-institutional (private) residence as the place of occurrence of the external cause; I10 Essential (primary) hypertension
CPT/HCPCS: 73660; 99283; A9270

== ENCOUNTER 2019-03-03 10:50 | Outpatient (CLI) | payer MEDICARE, OTHER | END 2019-03-03 10:51 | disposition home or self-care (01) | LOC: NS 10:50 | PROVIDERS: ATTEND Family Medicine | DX: Z71.3 Dietary counseling and surveillance (principal); N18.3 Chronic kidney disease, stage 3 (moderate); I12.9 Hypertensive chronic kidney disease with stage 1 through stage 4 chronic kidney disease, or unspecified chronic kidney disease; R73.01 Impaired fasting glucose; E78.5 Hyperlipidemia, unspecified | CPT/HCPCS: 97803 ==

== ENCOUNTER 2019-03-20 08:00 | Outpatient (CLI) | payer MEDICARE, OTHER ==
[2019-03-20 13:36] LABS: BASOPHILS % (AUTO) 0.7 %; EOSINOPHILS # (AUTO) 0.3 10^3/uL (0.0-0.7); EOSINOPHILS % (AUTO) 4.5 %; HGB - HEMOGLOBIN 14.9 g/dL (12.0-16.0); LYMPHOCYTES # (AUTO) 1.5 10^3/uL (1.5-3.5); MEAN CORPUSCULAR HEMOGLOBIN 30.1 pg (27.0-31.0); MEAN CORPUSCULAR HGB CONC 32.4 g/dL (32.0-36.0); MEAN CORPUSCULAR VOLUME 92.9 fL (81.0-99.0); MEAN PLATELET VOLUME 10.8 fL (7.9-10.8); MONOCYTES # (AUTO) 0.4 10^3/uL (0.0-1.0); MONOCYTES % (AUTO) 6.3 %; NEUTROPHILS # (AUTO) 3.4 10^3/uL (1.5-6.6); PLT - PLATELET COUNT 236 10^3/uL (130-450); RED BLOOD COUNT 4.95 10^6/uL (4.20-5.40); RED CELL DISTRIBUTION WIDTH 13.6 % (12.0-15.0); WHITE BLOOD COUNT 5.6 x10^3/uL (4.8-10.8)
[2019-03-20 14:05] LABS: ALBUMIN 3.8 g/dL (3.2-5.5); ALBUMIN/GLOBULIN RATIO 1.5 (1.0-2.2); ALKALINE PHOSPHATASE 97 IU/L (42-121); ALT ALANINE AMINOTRANSFERASE 19 IU/L (10-60); AST ASPARTATE AMINOTRANSFERASE 21 IU/L (10-42); BILIRUBIN,TOTAL 0.8 mg/dL (0.2-1.0); BUN - BLOOD UREA NITROGEN 12 mg/dL (6-20); CALCIUM 8.9 mg/dL (8.5-10.3); CARBON DIOXIDE - CO2 26 mmol/L (21-32); CHLORIDE 109 mmol/L (101-111); CHOL/HDL RATIO 3.9 (<4.4); CHOLESTEROL 159 mg/dL; CREATININE 1.3 mg/dL (0.4-1.0); GFR - MDRD 40 (>89); GLUCOSE 105 mg/dL (70-100); HDL CHOLESTEROL 41 mg/dL; LDL CHOLESTEROL,CALCULATED 88 mg/dL; LDL/HDL RATIO 2.1 (<4.4); SODIUM 141 mmol/L (135-145); TOTAL PROTEIN 6.4 g/dL (6.7-8.2); VLDL CHOLESTEROL 30 mg/dL
[2019-03-20 14:12] LABS: HB2 TOTAL 15.2 g/dL; HEMOGLOBIN A1C 0.62 g/dL; HEMOGLOBIN A1C % 5.9 % (4.6-6.2)
== END 2019-03-20 23:59 | disposition home or self-care (01) ==
LOC: LAB.WCP 08:00
PROVIDERS: ATTEND Family Medicine
DX: E78.5 Hyperlipidemia, unspecified (principal); R73.01 Impaired fasting glucose; I10 Essential (primary) hypertension
CPT/HCPCS: 36415; 80053; 80061; 83036; 83721; 85025

== ENCOUNTER 2019-08-15 10:29 | Outpatient (CLI) | payer MEDICARE, OTHER ==
[2019-08-15 14:08] LABS: BASOPHILS % (AUTO) 0.7 %; EOSINOPHILS # (AUTO) 0.3 10^3/uL (0.0-0.7); HGB - HEMOGLOBIN 15.2 g/dL (12.0-16.0); LYMPHOCYTES # (AUTO) 1.5 10^3/uL (1.5-3.5); LYMPHOCYTES % (AUTO) 28.2 %; MEAN CORPUSCULAR HEMOGLOBIN 30.9 pg (27.0-31.0); MEAN CORPUSCULAR HGB CONC 32.3 g/dL (32.0-36.0); MEAN CORPUSCULAR VOLUME 95.5 fL (81.0-99.0); MEAN PLATELET VOLUME 10.7 fL (7.9-10.8); MONOCYTES # (AUTO) 0.3 10^3/uL (0.0-1.0); MONOCYTES % (AUTO) 6.2 %; NEUTROPHILS # (AUTO) 3.2 10^3/uL (1.5-6.6); NEUTROPHILS % (AUTO) 59.5 %; PLT - PLATELET COUNT 198 10^3/uL (130-450); RED BLOOD COUNT 4.92 10^6/uL (4.20-5.40); RED CELL DISTRIBUTION WIDTH 13.6 % (12.0-15.0); WHITE BLOOD COUNT 5.4 x10^3/uL (4.8-10.8)
[2019-08-15 14:25] LABS: HB2 TOTAL 15.8 g/dL; HEMOGLOBIN A1C 0.58 g/dL; HEMOGLOBIN A1C % 5.5 % (4.6-6.2)
[2019-08-15 14:30] LABS: ALBUMIN 3.9 g/dL (3.2-5.5); ALBUMIN/GLOBULIN RATIO 1.3 (1.0-2.2); ALKALINE PHOSPHATASE 82 IU/L (42-121); ALT ALANINE AMINOTRANSFERASE 19 IU/L (10-60); AST ASPARTATE AMINOTRANSFERASE 21 IU/L (10-42); BILIRUBIN,TOTAL 1.2 mg/dL (0.2-1.0); BUN - BLOOD UREA NITROGEN 17 mg/dL (6-20); CALCIUM 9.2 mg/dL (8.5-10.3); CARBON DIOXIDE - CO2 28 mmol/L (21-32); CHLORIDE 104 mmol/L (101-111); CHOL/HDL RATIO 3.1 (<4.4); CHOLESTEROL 221 mg/dL; CREATININE 1.3 mg/dL (0.4-1.0); GLUCOSE 100 mg/dL (70-100); HDL CHOLESTEROL 71 mg/dL; LDL CHOLESTEROL,CALCULATED 117 mg/dL; LDL/HDL RATIO 1.6 (<4.4); SODIUM 142 mmol/L (135-145); TOTAL PROTEIN 6.9 g/dL (6.7-8.2); VLDL CHOLESTEROL 33 mg/dL
== END 2019-08-15 23:59 | disposition home or self-care (01) ==
LOC: LAB.WCP 10:29
PROVIDERS: ATTEND Family Medicine
DX: R73.01 Impaired fasting glucose (principal); E78.5 Hyperlipidemia, unspecified; I12.9 Hypertensive chronic kidney disease with stage 1 through stage 4 chronic kidney disease, or unspecified chronic kidney disease; N18.3 Chronic kidney disease, stage 3 (moderate)
CPT/HCPCS: 36415; 80053; 80061; 83036; 83721; 84443; 85025

== ENCOUNTER 2019-09-08 16:00 | Outpatient (CLI) | payer MEDICARE, OTHER ==
[2019-09-08 18:08] LABS: HGB - HEMOGLOBIN 16.4 g/dL (12.0-16.0); MEAN CORPUSCULAR HEMOGLOBIN 30.5 pg (27.0-31.0); MEAN CORPUSCULAR VOLUME 92.6 fL (81.0-99.0); RED BLOOD COUNT 5.37 10^6/uL (4.20-5.40); RED CELL DISTRIBUTION WIDTH 13.2 % (12.0-15.0); WHITE BLOOD COUNT 7.1 x10^3/uL (4.8-10.8)
[2019-09-08 18:35] LABS: CRP - C-REACTIVE PROTEIN < 1.0 mg/dL (0-1.0); URIC ACID 5.7 mg/dL (2.6-7.2)
[2019-09-08 18:58] LABS: RHEUMATOID FACTOR NEGATIVE (Negative)
== END 2019-09-08 23:59 | disposition home or self-care (01) ==
LOC: LAB.WCP 16:00
PROVIDERS: ATTEND Family Medicine
DX: M25.50 Pain in unspecified joint (principal)
CPT/HCPCS: 36415; 84550; 85025; 85027; 85651; 86140; 86200; 86430

== ENCOUNTER 2019-12-08 08:00 | Outpatient (CLI) | payer MEDICARE, OTHER ==
[2019-12-08 16:03] LABS: ABNORMAL LYMPHS % (MANUAL) 0 %; BAND NEUTROPHILS % (MANUAL) 0 %
[2019-12-08 18:43] LABS: BASOPHILS % (AUTO) 0.6 %; EOSINOPHILS % (AUTO) 3.8 %; LYMPHOCYTES % (AUTO) 25.5 %; MEAN CORPUSCULAR HEMOGLOBIN 30.8 pg (27.0-31.0); MEAN CORPUSCULAR HGB CONC 32.3 g/dL (32.0-36.0); MEAN CORPUSCULAR VOLUME 95.5 fL (81.0-99.0); MEAN PLATELET VOLUME 10.5 fL (7.9-10.8); MONOCYTES % (AUTO) 5.8 %; NEUTROPHILS % (AUTO) 63.8 %; PLT - PLATELET COUNT 201 10^3/uL (130-450); RED BLOOD COUNT 4.87 10^6/uL (4.20-5.40); RED CELL DISTRIBUTION WIDTH 14.3 % (12.0-15.0); WHITE BLOOD COUNT 6.5 x10^3/uL (4.8-10.8)
[2019-12-08 19:01] LABS: ALBUMIN 4.1 g/dL (3.2-5.5); ALBUMIN/GLOBULIN RATIO 1.5 (1.0-2.2); BILIRUBIN,TOTAL 0.8 mg/dL (0.2-1.0); CALCIUM 9.2 mg/dL (8.5-10.3); CREATININE 1.2 mg/dL (0.4-1.0); TOTAL PROTEIN 6.8 g/dL (6.7-8.2)
[2019-12-08 19:17] LABS: BILIRUBIN,URINE NEGATIVE (NEGATIVE); GLUCOSE, URINE (UA) NEGATIVE (NEGATIVE); KETONES,URINE (UA) NEGATIVE (NEGATIVE); LEUKOCYTE ESTERASE, URINE TRACE (NEGATIVE); NITRITE,URINE NEGATIVE (NEGATIVE); OCCULT BLOOD,URINE NEGATIVE (NEGATIVE); PROTEIN,URINE NEGATIVE (NEGATIVE); UROBILINOGEN,URINE 0.2 (NORMAL) E.U./dL (NORMAL)
[2019-12-08 19:31] LABS: CLARITY,URINE CLEAR (CLEAR)
[2019-12-08 20:06] LABS: BACTERIA,URINE Many /HPF (None Seen); CRYSTALS,URINE 3-5 Calcium Oxalate /LPF; SQUAMOUS EPITHELIAL CELL,UR FEW Squamous (<= Few)
[2019-12-08 21:01] LABS: HEMOGLOBIN A1c% 5.7 % (4.27-6.07)
[2019-12-08 21:39] LABS: DIFFERENTIAL COMMENT MANUAL DIFFERENTIAL; EOSINOPHILS # (MANUAL) 0.3 10^3/uL (0-0.7); LYMPHOCYTES # (MANUAL) 1.4 10^3/uL (1.5-3.5); LYMPHOCYTES % (MANUAL) 21 %; MONOCYTES # (MANUAL) 0.3 10^3/uL (0.0-1.0); PLATELET ESTIMATE, MANUAL NORMAL (130-450,000) (NORMAL); PLATELET MORPHOLOGY NORMAL APPEARANCE (NORMAL); RBC MORPHOLOGY (MULTIPLE) NORMAL APPEARANCE (NORMAL)
[2019-12-11 14:06] LABS: ERYTHROPOIETIN 9.9 mIU/mL (2.6-18.5)
[2019-12-12 12:11] LABS: JAK2 COMMENT NOT DETECTED; JAK2 SPECIMEN TYPE NG
== END 2019-12-08 23:59 | disposition home or self-care (01) ==
LOC: LAB.WCP 08:00
PROVIDERS: ATTEND Family Medicine
DX: N18.3 Chronic kidney disease, stage 3 (moderate) (principal); D75.1 Secondary polycythemia; R73.01 Impaired fasting glucose; R30.0 Dysuria
CPT/HCPCS: 36415; 80053; 81001; 81270; 82668; 83036; 85025; 87086

== ENCOUNTER 2020-01-16 12:28 | Outpatient (CLI) | payer MEDICARE, OTHER ==
--- NOTE | 2020-01-17 15:02 | Mammography Report ---
BILATERAL DIGITAL DIAGNOSTIC MAMMOGRAM 3D/2D: 01/16/2020 CLINICAL: Focal left breast pain. Comparison is made to exams dated: 03/23/2018 mammogram, 11/02/2016 mammogram, 08/30/2015 mammogram, 08/20 mammogram, 09/12/2013 mammogram, and 07/12/2012 mammogram - [facility]. The t issue of both breasts is predominantly fatty. There is an oval equal density focal asymmetry in the left breast at 7 o'clock in the retroareolar re gion. This is more prominent and increased in size and correlates as palpated, to the area of report ed pain, and with the triangular skin marker. No other significant masses, calcifications, or other findings are seen in either breast. IMPRESSION: INCOMPLETE: NEEDS ADDITIONAL IMAGING EVALUATION The oval equal density focal asymmetry in the left breast is indeterminate. An ultrasound is recommended for further evaluation and is scheduled to immediately follow this study . The implants are intact and have a stable appearance. This exam was interpreted at Station ID: [id number]. NOTE: For mammograms, a report in lay terms will be sent to the patient. Approximately 15% of breast malignancies will not be visualized mammographically. In the management of a palpable breast mass, a negative mammogram must not discourage biopsy of a clinically suspicious lesion. Electronically Signed By: Linden Atkinson M.D. aty/:01/16/2020 13:52:02 ACR BI-RADS Category 0: Incomplete 3340F PARENCHYMAL PATTERN: (F) - The breast(s) demonstrate(s) diffuse fatty replacement. BI-RADS CATEGORY: (0) - 0 Ultrasound [id number] Immediate follow-up LATERALITY: (L)
--- NOTE | 2020-01-17 15:02 | Ultrasound Report ---
LIMITED ULTRASOUND OF LEFT BREAST: 01/16/2020 CLINICAL: Focal left breast pain. Comparison is made to exams dated: 01/16/2020 mammogram, 03/23/2018 mammogram, 11/02/2016 mammogram, 12/2015 mammogram, 09/06/2014 mammogram, and 09/12/2013 mammogram - [facility]. Color flow and real-time ultrasound of the left breast 4 o'clock region were performed. Horner scale images of the real-time examination were reviewed. There is a 1.3 cm x 1 cm x 0.6 cm oval cyst versus focally dilated duct in the left breast at 4 o'zach ck in the retroareolar region. This oval cyst is hypoechoic with internal echoes and increased poste rior through transmission. This correlates with mammography findings which has been visualized over the years but is larger on this year's mammograhic evaluation. Color flow imaging demonstrates that there is no vascularity present. IMPRESSION: BENIGN There is no sonographic evidence of malignancy. The 1.3 cm x 1 cm x 0.6 cm oval cyst with debris versus focally dilated duct in the left breast is be nign. A 1 year screening mammogram is recommended. Additionally, recommend clinical follow up for persistent or worsening symptoms, or development of an y clinically suspicious findings. Findings and recommendations were conveyed to the patient during today's evaluation. This exam was interpreted at Station ID: [id number]. Electronically Signed By: Linden Atkinson M.D. aty/:01/16/2020 14:45:22 Ultrasound BI-RADS: 2 Benign BI-RADS CATEGORY: (2) - 2 RECOMMENDATION: (ANNUAL) - Recommend routine annual screening mammography. [id number] 1 year screening LATERALITY: (B)
== END 2020-01-16 12:29 | disposition home or self-care (01) ==
LOC: DI 12:28
PROVIDERS: ATTEND Family Medicine
DX: N60.02 Solitary cyst of left breast (principal); Z98.82 Breast implant status
CPT/HCPCS: 76642; 77066